=== PATIENT | female | born 1975 | race Caucasian/White ===

== ENCOUNTER 2023-07-28 18:19 | Observation (INO) ==
[2023-07-28 19:09] LABS: Influenza B virus by PCR Negative (Neg); RSV by PCR Negative (Neg); SARS CoV2 RNA(COVID-19) Ceph NEGATIVE (Negative)
[2023-07-28 19:34] LABS: Basophils # (auto) 0.02 K/uL (0.00-0.20); Basophils % (auto) 0.3 %; Eosinophils # (auto) 0.08 K/uL (0.00-0.50); Eosinophils % (auto) 1.2 %; Hematocrit (blood only) 39.8 % (37.0-47.0); Hemoglobin 13.9 g/dl (12.0-16.0); Immature Granulocytes # (auto) 0.03 K/uL (0.01-0.20); Immature Granulocytes % (auto) 0.5 %; Lymphocytes # (auto) 0.56 K/uL (1.20-3.40); Lymphocytes % (auto) 8.7 %; Mean Corpuscular Hgb Conc 34.9 g/dL (32.0-36.0); Mean Corpuscular Volume 88.6 fL (80.0-100.0); Mean Platelet Volume 10.4 fL (9.4-12.4); Monocytes # (auto) 0.66 K/uL (0.11-0.59); Monocytes % (auto) 10.3 %; Neutrophils # (auto) 5.07 K/uL (1.40-6.50); Platelet Count 263 K/uL (130-400); RDW Coefficient of Variation 12.8 % (11.5-14.5); RDW Standard Deviation 41.7 fL (36.4-46.3); Red Blood Count 4.49 M/uL (4.20-5.40); White Blood Count 6.42 K/ul (4.8-10.8)
[2023-07-28 19:39] LABS: Influenza A virus by PCR Positive (Neg)
[2023-07-28] MEDS ORDERED: OSELTAMIVIR PHOSPHATE 75 MG CAP PO STA (19:41)
[2023-07-28] MEDS ORDERED: SODIUM CHLORIDE 0.9% 1,000 ML IV ONE (19:41)
[2023-07-28] MEDS ORDERED: dexAMETHasone**PF** 10 MG/ML VIAL IV ONE (19:41)
[2023-07-28] MEDS ORDERED: ALBUT/IPRATROP 3MG/0.5MG NEB 3 ML VIAL NEB STA ×2 (19:41→21:31)
--- NOTE | 2023-07-28 19:47 | Emergency Department Note ---
Impression & Plan Acute asthma exacerbation, Influenza ED Provider Note NAME: LJ GASCA AGE: 48 SEX: F : 1975 ARRIVES VIA: Walk-In INFORMANT: Patient, ED PROVIDER(S): Dave Roberto DO CHIEF COMPLAINT: Difficulty breathing HPI: The patient is a 48-year-old female who presented to the emergency department for an evaluation of fever and difficulty breathing. The patient has a history of asthma. She states that she has been having problems ever since last evening. She has been using her inhaler as well as taking medication for fever. She denies having any vomiting or abdominal pain. She does note muscle aches as well as headaches. The patient states that she feels somewhat improved after her inhaler. She continues to have cough and wheezing. ROS: See above HPI for pertinent positives & negatives. A total of 10 systems reviewed and were otherwise negative. PAST MEDICAL HISTORY: See Below PAST SURGICAL HISTORY: See Below FAMILY HISTORY: See Below SOCIAL HISTORY: See Below HOME MEDICATIONS: See Below ALLERGIES: See Below VITALS: See Below PHYSICAL EXAMINATION: GENERAL: The patient is awake and alert. She does appear somewhat anxious. EYES: The conjunctivae are clear. The pupils are round and reactive. EARS, NOSE, MOUTH AND THROAT: The nose is without any evidence of any deformity. NECK: The neck is nontender and supple. RESPIRATORY: Diminished breath sounds are noted throughout. There is conversational dyspnea. CARDIOVASCULAR: Tachycardic and regular heart sounds were noted to auscultation. There is no definite murmur. GASTROINTESTINAL: The abdomen is soft. Abdomen is nontender. MUSCULOSKELETAL/EXTREMITIES: There is no evidence of gross deformity full range of motion is noted in the hips and shoulders. SKIN: There is no obvious evidence of any rash. There are no petechiae, pallor or cyanosis noted. NEUROLOGIC: Patient is awake alert and oriented x3 MEDICAL DECISION MAKING: The patient is a 48-year-old female who presented to the emergency department for an evaluation of cough and difficulty breathing. The patient has a history of asthma. She also had tachycardia and fever. I discussed the patient's laboratory and radiographic studies with her. She was found to have a positive influenza swab. Chest x-ray revealed no signs of pneumonia. She was treated with IV fluids IV steroids oral Tamiflu as well as bronchodilator therapy. She was reevaluated but continued to have significant shortness of breath especially with any exertion. Wheezing was significantly improved. Given her presentation I do feel the patient would be a better candidate for inpatient management. For this reason the [facility] hospitalist was notified. Triage Nursing notes reviewed. Prior medical records reviewed Vital Signs: reviewed and remarkable for tachycardia Differential diagnosis: Reactive airway disease, pneumonia, pneumothorax, COPD, CHF, infections, cardiac ischemia, pulmonary embolism, musculoskeletal, gastrointestinal, as well as other pathologies. ER treatment provided: See below Diagnostics interpreted by me: ECG: EKG was obtained in the emergency department. My interpretation is sinus tachycardia at 116 bpm. There is no ectopy. There is no acute ST segment abnormalities noted. This was compared to a tracing from May 05, 2006. There is an increase in rate otherwise no significant changes were noted. Cardiac Monitoring: An order was placed for continuous cardiac monitoring. The monitor shows a rate of 106 bpm with sinus tachycardia. Laboratory studies: As stated above and show below. Imaging studies: See below. Radiographic imaging was reviewed by myself Consultation(s): Dr. Tapia was notified about the patient. He will evaluate the patient in the emergency department. ED COURSE: Procedures: none Critical Care: I have personally spent greater than 45 minutes of critical care time in the direct management of this patient. This includes bedside care, interpretation of diagnostic studies, and testing, discussion with consultants, patient, and family members, and other required patient management activities. This 45 minutes is in excess of all separately billable procedures. Past Med/Surg History Surgical History H/O sinus surgery S/P breast lumpectomy Hx of cholecystectomy History of ankle surgery x3 Hx of tonsillectomy History of appendectomy Family History Grandmother (Maternal) Lung cancer Brain cancer Grandmother (Paternal) Ovarian cancer Grandfather (Paternal) Liver cancer Denies family history of Prostate cancer Myocardial infarction Breast cancer Colorectal cancer Stroke Social History Smoking Status: Unknown if ever smoked Do You Dip or Chew Tobacco: No; Hx Alcohol Use: Yes Alcohol type: wine Alcohol Intake Frequency: 2-3 x/Week Hx Substance Use: No Preferred Language: Polish Communication Ability: Effective Hearing Ability: Normal Yeast Pusher Required: No marital status: Single Current Living Situation: Alone 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 Feels Safe at Home: Yes Childhood Exposure to Second-Hand Smoke: No Diet: regular caffeine: Yes Dental Care, Regularly: No Physical Activity Frequency: Does not Exercise Seatbelt Use: always Sunscreen Use: No Allergies Allergies Allergy/AdvReac Type Severity Reaction Status Date / Time NSAIDS (Non-Steroidal Allergy Severe Verified 09/04/22 09:26 Anti-Inflamma poison giacomo extract Allergy Unknown Unverified 09/04/22 09:26 morphine AdvReac Unknown ITCHY Verified 09/04/22 09:26 ENVIRONMENTAL Allergy Mild Uncoded 07/24/22 10:09 Home Meds Previous Rx's Medication Instructions Recorded esomeprazole magnesium 20 mg 20 mg PO DAILY #90 caps 07/24/22 capsule,delayed release (Nexium) fexofenadine 180 mg tablet 180 mg PO BID #180 tabs 07/24/22 (Laurel Allergy) meclizine 25 mg tablet 25 mg PO DAILY PRN motion sickness 07/24/22 #90 tabs ondansetron 4 mg disintegrating 4 mg PO Q8H PRN nausea and 07/24/22 tablet vomiting #90 tabs buspirone 5 mg tablet 5 mg PO TID 30 days #90 tabs 09/04/22 escitalopram oxalate 20 mg tablet 20 mg PO DAILY #90 tabs 10/18/22 (Lexapro) hydroxyzine HCl 25 mg tablet 25 mg PO HS PRN sleep #90 tabs 10/18/22 Results & Data (ED) Vital Signs Vital Signs - 24 hr 07/28/23 18:20 07/28/23 19:00 07/28/23 19:25 Temperature 37.7 C H 37.7 C H Temperature Source Temporal Artery Scan Oral Pulse Rate 122 H Pulse Rate [Finger] 119 H 100 H Pulse Rhythm [Finger] Regular Respiratory Rate 22 20 18 Respiratory Effort / Characteristics Non-Labored Spontaneous Non-Labored Spontaneous Respiratory Depth Normal Normal Respiratory Pattern Regular Blood Pressure 147/83 H Blood Pressure [Right Arm] 129/26 L Blood Pressure Mean 104 Blood Pressure Mean [Right Arm] 60 Blood Pressure Position [Right Arm] Lying Pulse Oximetry 91 93 94 Oxygen Delivery Method Room Air Room Air Room Air Sepsis Recent Fever Within 48 Hours Yes Sepsis New/Unexplained Change in Mental Status N/A Sepsis Action Taken by Nursing No Action Required 07/28/23 20:08 07/28/23 21:03 07/28/23 21:38 Temperature 36.8 C Temperature Source Oral Pulse Rate 105 H Pulse Rate [Finger] 106 H Pulse Rhythm [Finger] Respiratory Rate 18 Respiratory Effort / Characteristics Non-Labored Spontaneous Respiratory Depth Normal Respiratory Pattern Regular Blood Pressure Blood Pressure [Right Arm] 146/93 H Blood Pressure Mean Blood Pressure Mean [Right Arm] 110 Blood Pressure Position [Right Arm] Lying Pulse Oximetry 92 Oxygen Delivery Method Room Air Sepsis Recent Fever Within 48 Hours Sepsis New/Unexplained Change in Mental Status Sepsis Action Taken by Senior Care Medications Current Medication List: was personally reviewed by me Laboratory Data Attestation: I reviewed the patient's lab results. 07/28/23 19:00 07/28/23 19:00 Lab Results 07/28/23 07/28/23 Range/Units 16:24 19:00 WBC 6.42 (4.8-10.8) K/ul RBC 4.49 (4.20-5.40) M/uL Hgb 13.9 (12.0-16.0) g/dl Hct 39.8 (37.0-47.0) % MCV 88.6 (80.0-100.0) fL MCH 31.0 (25.0-34.0) pg MCHC 34.9 (32.0-36.0) g/dL RDW Std Deviation 41.7 (36.4-46.3) fL RDW Coeff of Doreen 12.8 (11.5-14.5) % Plt Count 263 (130-400) K/uL MPV 10.4 (9.4-12.4) fL Immature Gran % (Auto) 0.5 % Neut % (Auto) 79.0 % Lymph % (Auto) 8.7 % [place] % (Auto) 10.3 % Eos % (Auto) 1.2 % Baso % (Auto) 0.3 % Neut # (Auto) 5.07 (1.40-6.50) K/uL Lymph # (Auto) 0.56 L (1.20-3.40) K/uL [place] # (Auto) 0.66 H (0.11-0.59) K/uL Eos # (Auto) 0.08 (0.00-0.50) K/uL Baso # (Auto) 0.02 (0.00-0.20) K/uL Immature Gran # (Auto) 0.03 (0.01-0.20) K/uL Sodium 136 (136-145) mmol/L Potassium 3.5 (3.5-5.1) mmol/L Chloride 103 (98-107) mmol/L Carbon Dioxide 23 (21-32) mmol/L Anion Gap 10 (3-11) BUN 13 (6-23) mg/dl Creatinine 0.78 (0.6-1.2) mg/dl Est Cr Clr Drug Dosing 114.5 ml/min Est GFR ( Amer) 104.2 ml/min Est GFR (Non-Af Amer) 89.9 ml/min BUN/Creatinine Ratio 16.7 (10-20) Glucose 144 H (70-99(Fasting)) mg/dl Calcium 9.2 (8.6-10.3) mg/dl Total Bilirubin 0.3 (0.2-1.0) mg/dl AST 22 (13-39) U/L ALT 27 (7-52) U/L Alkaline Phosphatase 63 (34-104) U/L Troponin I High Sens 2.7 (0-14) pg/ml Total Protein 6.9 (6.0-8.3) gm/dl Albumin 4.2 (3.4-5.0) gm/dl Globulin 2.7 (2.5-4.0) gm/dl Albumin/Globulin Ratio 1.6 (0.9-2) SARS-CoV-2 (PCR) NEGATIVE (Negative) Influenza Type A (PCR) Positive A* (Neg) Influenza Type B (PCR) Negative (Neg) RSV (RT-PCR) Negative (Neg) Administered Medications Discontinued Medications Acetaminophen (Acetaminophen 500 Mg Tab) 1,000 mg PO NOW STA Stop: 07/28/23 20:49 Last Admin: 07/28/23 21:01 Dose: 1,000 mg Documented By: BRYON Albuterol (Albut/Ipratrop 3mg/0.5mg Neb 3 Ml Vial) 3 ml NEB NOW STA; Protocol Stop: 07/28/23 19:42 Last Admin: 07/28/23 19:56 Dose: 3 ml Documented By: BRYON Albuterol (Albut/Ipratrop 3mg/0.5mg Neb 3 Ml Vial) 3 ml NEB NOW STA; Protocol Stop: 07/28/23 21:32 Last Admin: 07/28/23 21:36 Dose: 3 ml Documented By: BRYON Dexamethasone Sodium Phosphate (DexamethasonePf 10 Mg/Ml Vial) 10 mg IV NOW ONE Stop: 07/28/23 19:42 Last Admin: 07/28/23 19:56 Dose: 10 mg Documented By: BRYON Sodium Chloride (Nss) 1,000 mls @ 999 mls/hr IV .Q1H1M ONE Stop: 07/28/23 20:41 Last Admin: 07/28/23 19:57 Dose: 999 mls/hr Documented By: BRYON Oseltamivir Phosphate (Oseltamivir Phosphate 75 Mg Cap) 75 mg PO NOW STA; Protocol Stop: 07/28/23 19:42 Last Admin: 07/28/23 19:56 Dose: 75 mg Documented By: BRYON Imaging Data Attestation: I personally reviewed and interpreted this imaging study as follows: My Impression: 1 view chest x-ray was obtained in the emergency department. My interpretation is no free air or definite infiltrate, final report below. Radiologist's Impression: Chest X-Ray 07/28/23 18:24 XR chest 1V not portable HISTORY: 48 years-old Female Respiratory illness, no prior imaging COMPARISON: 05/05/2006 TECHNIQUE: AP view of the chest FINDINGS: Cardiomediastinal and hilar silhouettes are within normal limits. No pneumothorax, pleural effusion or airspace consolidation. Bones appear grossly intact. IMPRESSION: No acute process ACT 112: Negative or not required by law. The above report was generated using voice recognition software. It may contain grammatical, syntax or spelling errors. Electronically signed by: Gerald Perkins M.D. 07/28/2023 8:00 PM Discharge Plan Visit Data Chief Complaint: Asthma Stated Complaint: SOB, COUGH, ASTHMA ED Provider: Dave Roberto Discharge Problem: Acute asthma exacerbation, Influenza Patient Disposition: Being Evaluated by Hospitalist Forms Stand Alone Forms: My [facility] Prescriptions Prescriptions: No Action hydroxyzine HCl 25 mg tablet 25 mg PO HS PRN (Reason: sleep) Qty: 90 3RF escitalopram oxalate [Lexapro] 20 mg tablet 20 mg PO DAILY Qty: 90 3RF buspirone 5 mg tablet 5 mg PO TID 30 Days Qty: 90 2RF fexofenadine [Laurel Allergy] 180 mg tablet 180 mg PO BID Qty: 180 3RF meclizine 25 mg tablet 25 mg PO DAILY PRN (Reason: motion sickness) Qty: 90 3RF ondansetron 4 mg tablet,disintegrating 4 mg PO Q8H PRN (Reason: nausea and vomiting) Qty: 90 3RF esomeprazole magnesium [Nexium] 20 mg capsule,delayed release(DR/EC) 20 mg PO DAILY Qty: 90 3RF Referrals Referrals: Ysabel Meyers MD [Primary Care Provider] - Discharge Problem: Acute asthma exacerbation Qualifiers: Asthma severity: moderate Asthma persistence: persistent Qualified Code(s): J 45.41 - Moderate persistent asthma with (acute) exacerbation
[2023-07-28 19:50] LABS: Albumin Globulin Ratio 1.6 (0.9-2); Albumin Level 4.2 gm/dl (3.4-5.0); BUN Creatinine Ratio 16.7 (10-20); Bilirubin,Total 0.3 mg/dl (0.2-1.0); Calcium 9.2 mg/dl (8.6-10.3); Creatinine Clr Calc Pharmacy 114.5 ml/min; Est GFR (African American) 104.2 ml/min; Est GFR (Non-African American) 89.9 ml/min; Globulin 2.7 gm/dl (2.5-4.0); Potassium 3.5 mmol/L (3.5-5.1); Total Protein 6.9 gm/dl (6.0-8.3)
[2023-07-28 19:57] LABS: Troponin I High Sensitivity 2.7 pg/ml (0-14)
--- NOTE | 2023-07-28 20:01 | XRay Report ---
XR chest 1V not portable HISTORY: 48 years-old Female Respiratory illness, no prior imaging COMPARISON: 05/05/2006 TECHNIQUE: AP view of the chest FINDINGS: Cardiomediastinal and hilar silhouettes are within normal limits. No pneumothorax, pleural effusion o r airspace consolidation. Bones appear grossly intact. IMPRESSION: No acute process ACT 112: Negative or not required by law. The above report was generated using voice recognition software. It may contain grammatical, syntax o r spelling errors. Electronically signed by: Gerald Perkins M.D. 07/28/2023 8:00 PM
[2023-07-28] MEDS ORDERED: ACETAMINOPHEN 500 MG TAB PO STA (20:48)
--- NOTE | 2023-07-28 22:33 | History & Physical Report ---
Date of Service July 28, 2023 Assessment & Plan (1) Acute asthma exacerbation: Plan: -Pt currently with acute on chronic asthma exacerbation secondary to influenza infection -CXR does not suggest any acute processes including pneumonia -Currently hemodynamically stable, afebrile and stable respiratory status on RA -Continue home fexofenadine -Continue supportive care measures -Duoneb q4h -Tamiflu 75 mg BID -Solumedrol 40 mg IV BID with low threshold to transition to prednisone if improving -Tylenol 1000 mg q8h scheduled for myalgias -Incentive spirometry -Supplemental O2 as needed (2) Influenzal acute upper respiratory infection: Plan: -Influenza A positive, see above -Would advise pt to receive flu vaccine this year after resolution of acute illness (3) Tachycardia: Plan: -Mild physiologic sinus tachycardia noted in ER, secondary to infection -Admission EKG w/o abnormality -Will not monitor on telemetry for now (4) Acid reflux: Plan: -Continue home esomeprazole -Will cover ulcer prophylaxis whie pt is on steroids (5) Depression: Plan: -Continue Lexapro (6) Anxiety: Plan: -Continue buspirone -Continue hydroxyzine PRN Plan FENGI: Regular Code status: Full DVT prophylaxis: Lovenox BID Isolation: Droplet Unit: Medical/surgical Disposition planning: Likely home History of Present Illness Chief Complaint: Dyspnea Primary Care Provider: Ysabel Meyers MD Pt is 48 yo F with PMH asthma, anxiety, depression, GERD presenting with dyspnea. Pt reports onset of dyspnea and non-productive cough 1.5 days prior, associated with subjective fever, chills, headaches and myalgias. Symptoms acutely worsened evening prior which prompted her to use home albuterol inhaler more frequently along with Tylenol for fever at home. No recent travel or sick contacts though she did not get flu shot this year despite normally doing so because her workplace did not require it this year. Pt arrived to ER hemodynamically stable, HR 100s. Initial evaluation unremarkable including CBC, CMP, troponin, CXR. Flu A positive. ER interventions include albuterol nebulizer x2, Dexamethasone 10 mg, Tamiflu 75 mg, Tylenol 1000 mg IV, NSS 1L bolus. At present, pt reports feeling much better after albuterol treatment but still having some dyspnea. Allergies Allergy/AdvReac Type Severity Reaction Status Date / Time NSAIDS (Non-Steroidal Allergy Severe Anaphylaxis Verified 07/28/23 23:19 Anti-Inflamma poison giacomo extract Allergy Unknown Rash Unverified 07/28/23 23:19 morphine AdvReac Unknown ITCHY Verified 07/28/23 23:19 ENVIRONMENTAL Allergy Mild Unknown Uncoded 07/28/23 23:19 Home Medications Medication Instructions Recorded Confirmed Type ondansetron 4 mg disintegrating 4 mg PO Q8H PRN nausea and 07/24/22 07/28/23 Rx tablet vomiting #90 tabs hydroxyzine HCl 25 mg tablet 25 mg PO HS PRN sleep #90 tabs 10/18/22 07/28/23 Rx escitalopram oxalate 20 mg tablet 20 mg PO QPM 07/28/23 07/28/23 History (Lexapro) esomeprazole magnesium 20 mg 20 mg PO QAM 07/28/23 07/28/23 History tablet,delayed release fexofenadine 180 mg tablet 180 mg PO BID 07/28/23 07/28/23 History iron,carbonyl 65 mg-vitamin C 125 1 tab PO DAILY 07/28/23 07/28/23 History mg tablet,delayed release (Vitron-C) phenazopyridine 95 mg tablet 95 mg PO QAM 07/28/23 07/28/23 History Past Med/Surg History Surgical History H/O sinus surgery S/P breast lumpectomy Hx of cholecystectomy History of ankle surgery x3 Hx of tonsillectomy History of appendectomy Family History Grandmother (Maternal) Lung cancer Brain cancer Grandmother (Paternal) Ovarian cancer Grandfather (Paternal) Liver cancer Denies family history of Prostate cancer Myocardial infarction Breast cancer Colorectal cancer Stroke Social History Smoking Status: Never smoker Do You Dip or Chew Tobacco: No; Hx Alcohol Use: Yes Alcohol type: wine Alcohol Intake Frequency: 2-3 x/Week Hx Substance Use: No Preferred Language: Paraguayan Communication Ability: Effective Hearing Ability: Normal Partition Notcher Required: No Beliefs That Will Affect Care: None marital status: Single Current Living Situation: Alone 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 Other Information That Helps Us Care for You: No Feels Safe at Home: Yes Childhood Exposure to Second-Hand Smoke: No Diet: regular caffeine: Yes Dental Care, Regularly: No Physical Activity Frequency: Does not Exercise Seatbelt Use: always Sunscreen Use: No Assistive Devices: Glasses Review of Systems Review of Systems: Per HPI/Subjective Physical Exam Physical Exam: General: tired-appearing, no acute distress HEENT: PERRL, EOMI, conjunctivae clear without injection, anicteric sclerae, moist mucous membranes, clear oropharynx without exudate or erythema Neck: supple, trachea midline, no thyromegaly, no JVD, no cervical lymphadenopathy CV: RRR, normal S1 and S2, no murmurs Resp: Diminished breath sounds diffusely, no increased work of breathing, no crackles or wheezes. Conversational dyspnea noted. Abd: Soft, nontender, nondistended, no guarding or rebound, no hepatosplenomegaly MSK: Normal bulk of all four extremities Neuro: AOx3, no focal motor or sensory deficits Skin: no rashes or lesions, warm and dry Ext: no LE peripheral edema or erythema, capillary refill <2s in all four extremities, 2+ LE peripheral pulses b/l Results & Data Results & Data Vital Signs (Past 12 Hours) Vital Signs Temp Pulse Pulse Resp BP BP Pulse Ox 07/28/23 21:38 36.8 C 07/28/23 21:03 106 H 18 146/93 H 92 07/28/23 20:08 105 H 07/28/23 19:25 37.7 C H 100 H 18 129/26 L 94 07/28/23 19:00 119 H 20 93 07/28/23 18:20 37.7 C H 122 H 22 147/83 H 91 O2 Del Method 07/28/23 21:38 07/28/23 21:03 Room Air 07/28/23 20:08 07/28/23 19:25 Room Air 07/28/23 19:00 Room Air 07/28/23 18:20 Room Air Code Status & VTE Plan VTE Prophylaxis Plan VTE Prophylaxis will be ordered: Yes Supervising Physician Co-Signing Physician Notes Attending addendum: I have physically seen this patient, have supervised the medical residents activities, and agree with the H&P unless as otherwise noted. Assessment and Plan: Asthma exacerbation/influenza A URI- Duonebs every 4 hours while awake and every 2 hours when necessary. Tamiflu 75 mg p.o. twice daily Received dexamethasone 10 mg IV from the ED Methylprednisolone 40 mg IV every 8 hours Tylenol 1 g p.o. every 8 hours as needed Incentive spirometry Nasal cannula oxygen, titrate to keep pulse ox around 95% GERD- Change Nexium to pantoprazole per formulary interchange Anxiety with depression- Continue Lexapro, buspirone and hydroxyzine as needed Resident Activity Tracking Resident Involvement: Resident Care Provided Care Provided: Adult Hospital Medicine (1) Acute asthma exacerbation Asthma persistence: persistent Asthma severity: moderate Qualified Code(s): J45.41 - Moderate persistent asthma with (acute) exacerbation
[2023-07-29] MEDS ORDERED: hydrOXYzine HCl 25 MG TAB PO PRN (01:17)
[2023-07-29] MEDS ORDERED: ONDANSETRON 4 MG OD TAB PO PRN (01:17)
[2023-07-29] MEDS ORDERED: oxyCODONE HCL IR 5 MG TAB (IMMEDIATE RELEASE) PO STA (01:41)
[2023-07-29] MEDS: ALBUT/IPRATROP 3MG/0.5MG NEB 3 ML VIAL NEB SCH ×4 (02:14→11:45)
[2023-07-29] MEDS ORDERED: Nursing to Pharmacy Communication SCH (03:00)
--- NOTE | 2023-07-29 05:15 | Billing Data ---
Date of Service July 29, 2023 Coding Level of Care Code 57324 INT INP/OBS CARE
[2023-07-29] MEDS ORDERED: ENOXAPARIN INJ 40 MG/0.4 ML SYR SQ SCH (06:00)
[2023-07-29] MEDS ORDERED: ACETAMINOPHEN 500 MG TAB PO SCH (06:00)
[2023-07-29 07:55] LABS: Hematocrit (blood only) 37.7 % (37.0-47.0); Hemoglobin 12.7 g/dl (12.0-16.0); Mean Corpuscular Hemoglobin 30.5 pg (25.0-34.0); Mean Corpuscular Hgb Conc 33.7 g/dL (32.0-36.0); Mean Corpuscular Volume 90.6 fL (80.0-100.0); Mean Platelet Volume 10.4 fL (9.4-12.4); Platelet Count 262 K/uL (130-400); RDW Coefficient of Variation 12.7 % (11.5-14.5); RDW Standard Deviation 41.7 fL (36.4-46.3); Red Blood Count 4.16 M/uL (4.20-5.40)
[2023-07-29] MEDS: busPIRone 5 MG TAB PO SCH ×2 (08:04→08:05)
[2023-07-29 08:10] LABS: BUN Creatinine Ratio 15.9 (10-20); Calcium 8.6 mg/dl (8.6-10.3); Creatinine Clr Calc Pharmacy 128.6 ml/min; Est GFR (African American) 119.3 ml/min; Est GFR (Non-African American) 102.9 ml/min; Potassium 3.8 mmol/L (3.5-5.1)
[2023-07-29] MEDS ORDERED: OSELTAMIVIR PHOSPHATE 75 MG CAP PO SCH (09:00)
[2023-07-29] MEDS ORDERED: methylPREDNISolone 40 MG in SYRINGE 0 ML IV SCH (09:00)
[2023-07-29] MEDS ORDERED: FEXOFENADINE HCL 180 MG TAB PO SCH (09:00)
[2023-07-29] MEDS ORDERED: PANTOprazole 40 MG TAB PO SCH ×2 (09:00→21:00)
[2023-07-29] MEDS ORDERED: ESCITALOPRAM OXALATE 20 MG TAB PO SCH ×2 (09:00→21:00)
--- NOTE | 2023-07-29 11:56 | Discharge Summary ---
Date of Service July 29, 2023 Admission HPI Per Admitting Provider Pt is 48 yo F with PMH asthma, anxiety, depression, GERD presenting with dyspnea. Pt reports onset of dyspnea and non-productive cough 1.5 days prior, associated with subjective fever, chills, headaches and myalgias. Symptoms acutely worsened evening prior which prompted her to use home albuterol inhaler more frequently along with Tylenol for fever at home. No recent travel or sick contacts though she did not get flu shot this year despite normally doing so because her workplace did not require it this year. Pt arrived to ER hemodynamically stable, HR 100s. Initial evaluation unremarkable including CBC, CMP, troponin, CXR. Flu A positive. ER interventions include albuterol nebulizer x2, Dexamethasone 10 mg, Tamiflu 75 mg, Tylenol 1000 mg IV, NSS 1L bolus. At present, pt reports feeling much better after albuterol treatment but still having some dyspnea. Principal Diagnosis Acute exacerbation intrinsic asthma, influenza A Discharge Exam General-alert and oriented x3, no fevers, no chills HEENT-head atraumatic and normocephalic, pupils equal and reactive to light, extraocular muscles intact Neck-no lymphadenopathy or thyromegaly, trachea midline Chest-clear to auscultation percussion. No rales wheezing or rhonchi Cardiac-regular rate and rhythm, normal S1 and S2 Abdomen-normal bowel sounds, nontender, no hepatosplenomegaly Extremities-no cyanosis, clubbing, or edema Neuro-cranial nerves II through XII intact, motor and sensory function within normal limits, strength symmetrical, no focal deficits Psych-normal affect, normal mood Discharge Data Allergies Allergy/AdvReac Type Severity Reaction Status Date / Time NSAIDS (Non-Steroidal Allergy Severe Anaphylaxis Verified 07/28/23 23:19 Anti-Inflamma poison giacomo extract Allergy Unknown Rash Unverified 07/28/23 23:19 morphine AdvReac Unknown ITCHY Verified 07/28/23 23:19 ENVIRONMENTAL Allergy Mild Unknown Uncoded 07/28/23 23:19 Consultations 07/28/23 21:59 ED Decision to Admit Stat Hospital Course (1) Acute asthma exacerbation: Resolved. No wheezing at this time. She will be discharged on a prednisone tapering dose and use her albuterol inhaler as she did before (2) Influenzal acute upper respiratory infection: Influenza A positive. Will continue Tamiflu for 5 days total (3) Tachycardia: Sinus tachycardia present on admission. Now resolved (4) Acid reflux: Stable. Continue PPI therapy Plan Home today, July 29, on a prednisone tapering dose and continue Tamiflu for 5 full days. Total Time Total Time Spent Total Time Spent (In Minutes): 45 minutes Discharge Plan Discharge Items Patient Disposition: Home - Self-Care Reason For Visit: FLU, ASTHMA EXACERBATION Discharge Diagnosis: Influenza A, acute exacerbation intrinsic asthma Activity: Resume your previous activity Non-emergency contact: Primary Care Provider Call non-emergency contact if: your symptoms worsen Follow-up/Referrals: Ysabel Meyers MD [Primary Care Provider] - Diet: Regular Addtl Attending Provider Instructions: Continue Tamiflu for 4 more days. Take prednisone in a tapering dose fashion until gone as directed. Pending Studies at Discharge: No Stand-Alone Forms: My [facility] [employer], Smoking Cessation Medications and DC Order Prescriptions: New oseltamivir [Tamiflu] 75 mg Capsule 75 mg PO BID Qty: 8 0RF albuterol sulfate 90 mcg/actuation HFA aerosol inhaler 2 inh inhalation TID PRN (Reason: shortness of breath or wheezing) Qty: 6.7 0RF prednisone 10 mg tablet See Rx Instructions .ROUTE .COMPLEX Qty: 12 0RF Rx Instructions: 10 mg orally 3 times a day for 2 days, then 10 mg twice a day for 2 days, then 10 mg once a day for 2 days, then stop Continued hydroxyzine HCl 25 mg tablet 25 mg PO HS PRN (Reason: sleep) Qty: 90 3RF ondansetron 4 mg tablet,disintegrating 4 mg PO Q8H PRN (Reason: nausea and vomiting) Qty: 90 3RF phenazopyridine [Azo] 95 mg Tablet 95 mg PO QAM Vitron-C 65 mg iron- 125 mg Tablet,Delayed Release (Dr/Ec) 1 tab PO DAILY escitalopram oxalate [Lexapro] 20 mg tablet 20 mg PO QPM fexofenadine 180 mg Tablet 180 mg PO BID esomeprazole magnesium 20 mg Tablet,Delayed Release (Dr/Ec) 20 mg PO QAM Discharge Orders: Discharge Order (Routine); Ordered 07/29/23 Ordered By: Ayo Munroe Admission Data Admit Date/Time: 07/28/23 22:33 Attending Provider: Ludwig,Ayo R. Admit Provider: Amanda Durbin Primary Care Provider: Ysabel Meyers Other Providers: Rene Tapia Coding Level of Care Code 32396 INP/OBS DISCH >30 MIN Diagnoses Acute asthma exacerbation J45.41 Asthma persistence: persistent Asthma severity: moderate Influenzal acute upper respiratory infection J11.1 Tachycardia R00.0 Acid reflux K21.9
--- NOTE | 2023-07-29 18:02 | Electrocardiogram Report ---
Test Reason : Blood Pressure : / mmHG Vent. Rate : 116 BPM Atrial Rate : 116 BPM P-R Int : 122 ms QRS Dur : 082 ms QT Int : 306 ms P-R-T Axes : 000 028 067 degrees QTc Int : 425 ms Sinus tachycardia Otherwise normal ECG When compared with ECG of 05-MAY-2006 13:44, Vent. rate has increased BY 41 BPM Confirmed by Puma Mejía ([id number]) on 07/29/2023 6:01:44 PM Referred By: REFERRED SELF Confirmed By:Puma Mejía
== END 2023-07-29 13:05 | disposition home or self-care (01) ==
LOC: ED 18:19 → 3E 18:19 → SUATTDRO 22:33 → 3E 07-29 00:58

== ENCOUNTER 2025-06-02 09:17 | Observation (INO) ==
--- NOTE | 2025-05-19 09:40 | PAT Medication Instructions ---
Medication Instructions Date of Service May 19, 2025 Home Medications Medication Instructions Recorded CPAP Machine #1 ea 06/23/24 escitalopram oxalate 20 mg tablet 20 mg PO QPM #90 tabs 10/06/24 (Lexapro) hydroxyzine HCl 25 mg tablet 25 mg PO HS sleep #90 tabs 10/06/24 omalizumab 300 mg/2 mL 300 mg (2 mL) subcut .COMPLEX #2 mL 02/12/25 subcutaneous syringe (Xolair) albuterol sulfate 90 mcg/actuation 2 inh inhalation TID PRN shortness 03/29/25 aerosol inhaler of breath or wheezing #8.5 grams fexofenadine 180 mg tablet 180 mg PO BID escitalopram oxalate 20 mg tablet (Lexapro) 20 mg PO QPM hydroxyzine HCl 25 mg tablet 25 mg PO HS sleep acetaminophen 325 mg tablet (Tylenol) 650 mg PO HS PRN Pain olmesartan 20 mg tablet 20 mg PO HS omalizumab 300 mg/2 mL subcutaneous syringe (Xolair) 300 mg (2 mL) subcut .COMPLEX albuterol sulfate 90 mcg/actuation aerosol inhaler 2 inh inhalation TID PRN shortness of breath or wheezing dicyclomine 10 mg capsule 10 mg PO TID PRN Abdominal Pain esomeprazole magnesium 40 mg capsule,delayed release (Nexium) 40 mg PO QPM fluticasone propionate 230 mcg-salmeterol 21 mcg/actuation HFA inhaler (Advair HFA) 2 puff inhalation BID PRN Shortness Of Breath iron,carbonyl 65 mg-vitamin C 125 mg tablet,delayed release (Vitron-C) 1 tab PO DAILY prednisone 20 mg tablet 40 mg PO UD PRN swelling ASK your prescriber and surgeon omalizumab 300 mg/2 mL subcutaneous syringe (Xolair) 300 mg (2 mL) subcut .COMPLEX DO NOT take the morning of surgery fexofenadine 180 mg tablet 180 mg PO BID dicyclomine 10 mg capsule 10 mg PO TID PRN Abdominal Pain iron,carbonyl 65 mg-vitamin C 125 mg tablet,delayed release (Vitron-C) 1 tab PO DAILY Take morning of surgery With a small sip of water, OTHERWISE NOTHING TO EAT OR DRINK AFTER MIDNIGHT: albuterol sulfate 90 mcg/actuation aerosol inhaler 2 inh inhalation TID PRN shortness of breath or wheezing (use if needed; please bring rescue inhaler with you to hospital day of surgery if possible) fluticasone propionate 230 mcg-salmeterol 21 mcg/actuation HFA inhaler (Advair HFA) 2 puff inhalation BID PRN Shortness Of Breath (use if needed; please bring rescue inhaler with you to hospital day of surgery if possible) prednisone 20 mg tablet 40 mg PO UD PRN swelling (if needed) Take evening before surgery fexofenadine 180 mg tablet 180 mg PO BID escitalopram oxalate 20 mg tablet (Lexapro) 20 mg PO QPM hydroxyzine HCl 25 mg tablet 25 mg PO HS sleep acetaminophen 325 mg tablet (Tylenol) 650 mg PO HS PRN Pain (if needed) olmesartan 20 mg tablet 20 mg PO HS albuterol sulfate 90 mcg/actuation aerosol inhaler 2 inh inhalation TID PRN shortness of breath or wheezing (if needed) dicyclomine 10 mg capsule 10 mg PO TID PRN Abdominal Pain (if needed) esomeprazole magnesium 40 mg capsule,delayed release (Nexium) 40 mg PO QPM fluticasone propionate 230 mcg-salmeterol 21 mcg/actuation HFA inhaler (Advair HFA) 2 puff inhalation BID PRN Shortness Of Breath (if needed) prednisone 20 mg tablet 40 mg PO UD PRN swelling (if needed) Other Notes If you have any questions please call us at [phone] or [phone] or [phone] or [phone]
--- NOTE | 2025-05-21 13:06 | Anesthesiology Consultation ---
Date of Service May 21, 2025 Assessment & Plan (1) Encounter for pre-operative examination: - Ultimate discussion will be to assigned anesthesiologist with patient DOS. - Jania Contreras [facility] 2018 anesthesia record: "...general endotracheal...BP 154/87. Pulse 106. Resp 16. Temp 98.2 F. SpO2 94%...awake...airway patent: patent. No anesthetic complications. Cardiovascular status: acceptable. Respiratory status: acceptable...did patient require reintubation in the PACU: no...was the patient transferred to the ICU at the conclusion of surgery-no...discharge instruction reviewed with pt. Understanding verbalized. Pt denies pain, VSS. All belongings sent home with pt..." - mast cell activation syndrome (episodes consisting of dizziness/lightheadedness/near syncope, muscle weakness legs and arms, flushing, tachycardia, rash, itching, chest tightness): patient expresses concerns over a potential flare with upcoming surgery. [place] allergy response 05/21/25: "...She is already on Laurel twice daily with hydroxyzine at night and she also gets Xolair in our office so this should cover her. I would say if she develops symptoms she should increase her Laurel to 2 tablets twice daily. I also reviewed this with Dr. Atkinson and he agreed..." - check urine test STAT am DOS. Chart Review Chart Review: Acceptable Risk for Surgery and Patient seen in Pre Admission Testing Teaching & Discussion Pre-Anesthesia Teaching/Discussion Notes: Instructed NPO after midnight before surgery, except medications with 15 cc of water. Medication instructions provided according to the PAT guidelines. History Surgery Operation Date: 06/02/25 12:40 Proposed Procedures p Image Guided Bilateral Endoscopic Sinsus Surgery with Bilateral Maxillary Total Ethmoidectomies, Left Frontal Sinusotomies, Possible Septoplasty, Bilateral Inferior Turbinate Reduction - Carlos Soriano MD Height/Weight Height: 5 ft 6 in Weight: 118.1 kg Allergies Allergy/AdvReac Type Severity Reaction Status Date / Time NSAIDS (Non-Steroidal Allergy Severe Anaphylaxis Verified 05/19/25 07:35 Anti-Inflamma poison giacomo extract Allergy Unknown Rash Verified 05/19/25 07:35 morphine AdvReac Mild ITCHY Verified 05/19/25 07:35 ENVIRONMENTAL Allergy Mild Unknown Uncoded 05/19/25 07:35 metal AdvReac "swelling Uncoded 05/19/25 08:01 and pain" Medications Home Medications Medication Instructions Recorded Confirmed Last Taken fexofenadine 180 mg tablet 180 mg PO BID 07/28/23 05/19/25 02/04/25 20:00 CPAP Machine #1 ea 06/23/24 05/06/25 Unknown escitalopram oxalate 20 mg tablet 20 mg PO QPM #90 tabs 10/06/24 05/19/25 02/04/25 20:00 (Lexapro) hydroxyzine HCl 25 mg tablet 25 mg PO HS sleep #90 tabs 10/06/24 05/19/25 02/04/25 20:00 acetaminophen 325 mg tablet 650 mg PO HS PRN Pain 01/27/25 05/19/25 02/03/25 20:00 (Tylenol) olmesartan 20 mg tablet 20 mg PO HS 01/27/25 05/19/25 02/04/25 20:00 omalizumab 300 mg/2 mL 300 mg (2 mL) subcut .COMPLEX #2 mL 02/12/25 05/19/25 Unknown subcutaneous syringe (Xolair) albuterol sulfate 90 mcg/actuation 2 inh inhalation TID PRN shortness 03/29/25 05/19/25 Unknown aerosol inhaler of breath or wheezing #8.5 grams dicyclomine 10 mg capsule 10 mg PO TID PRN Abdominal Pain 05/19/25 05/19/25 Unknown esomeprazole magnesium 40 mg 40 mg PO QPM 05/19/25 05/19/25 Unknown capsule,delayed release (Nexium) fluticasone propionate 230 2 puff inhalation BID PRN 05/19/25 05/19/25 Unknown mcg-salmeterol 21 mcg/actuation Shortness Of Breath HFA inhaler (Advair HFA) iron,carbonyl 65 mg-vitamin C 125 1 tab PO DAILY 05/19/25 05/19/25 Unknown mg tablet,delayed release (Vitron-C) prednisone 20 mg tablet 40 mg PO UD PRN swelling 05/19/25 05/19/25 Unknown epinephrine 0.3 mg/0.3 mL 0.3 mg (0.3 mL) IM Q10M PRN 05/21/25 05/21/25 Unknown injection, auto-injector anaphylaxis #2 ea Past Medical History Medical History (Updated 05/21/25 @ 13:39 by Karla Foote PA-C) Acid reflux controlled, stable per pt Allergic rhinitis currently seeing [place] Anemia Anxiety Asthma daily inhaler and prn albuterol- using frequently in spring due to allergies- last albuterol inhaler several weeks ago Depression Dysphagia improving since start Xolair, scheduled to see gastro/ent after colonsocopy History of postoperative nausea and vomiting History of tachycardia "gets all the time," cardiac work up normal Hx of chest pain chronic, intermittent x 25 years ago-gradually improving-cardiac work-up (stress test 10 yrs ago was normal per patient)-states has had multiple ER/cardiology evaluations and EKGs/troponins were always normal Hypertension controlled, stable per pt Hypothyroidism monitored, no meds Mast cell disorder potential diagnosis - currently being worked up- had lab work ordered by Ivy Madrigal, [place] Panic disorder Restless leg Sleep apnea severe-unable to get cpap to work, has not yet worn Slow to wake up after anesthesia after sinus sx, 2018 [facility], "had to be admitted overnight until they could get her vitals stabilized" Thyroid nodule biopsied a few weeks ago at [facility] and benign Patient denies h/o stroke, seizures, heart attack, heart failure, DM, blood clots/DVTs or blood transfusions. Exercise / Class Metabolic Activity II 4-5 Yardwork/Stairs/Walk up hill (denies chest discomfort or shortness of breath with one flight of stairs) Past Family History Family History Grandmother (Maternal) Lung cancer Brain cancer Grandmother (Paternal) Ovarian cancer Grandfather (Paternal) Liver cancer Denies family history of Prostate cancer Myocardial infarction Breast cancer Colorectal cancer Stroke Past Surgical History Surgical History H/O sinus surgery (2018) History of ankle surgery x3- left- trimalleolar fracture History of appendectomy History of esophagogastroduodenoscopy (EGD) (2024) Hx of biopsy (12/2024) thyroid- benign Hx of cholecystectomy Hx of colonoscopy (2024) Hx of tonsillectomy (1984) S/P breast lumpectomy benign Past Anesthesia History No Family Hx of Anesthesia Complications and Other (slow to wake-admission due to "abnormal vitals" with 2019 sinus surgery; mother with PONV) History of PONV History of PONV and Hx of Motion Sickness Social History Smoking Status: Never smoker Do You Dip or Chew Tobacco: No Hx Alcohol Use: Yes Alcohol type: wine alcohol intake frequency: holidays/special occasions only Hx Substance Use: No substance use type: does not use Review of Systems Patient denies chest pain, shortness of breath, dyspnea on exertion, fever, chills, cough, wheezing, or palpitations. Physical Exam Vital Signs Vitals BP 111/77 P 91 TEMP SP02 96% on RA RESP 17 Physical Patient resting comfortably in chair in no acute distress, alert and oriented, responding appropriately throughout visit Full cervical extension range of motion without pain TMD 3 finger breadths Mallampati Score 3 Dentition: chipped left upper tooth and implant left lower side, denies loose teeth, caps/crowns or bridges Lungs: normal respiratory effort. Good air movement, clear throughout to auscultation, no adventitious breath sounds Cardiac: regular rate and rhythm, no murmurs noted Carotid arteries: negative bruit bilat Lab Results Anesthesia Preop Results Results Anesthesia Widget: WBC 8.28 K/ul (4.8-10.8) 05/21/25 Hgb 12.3 g/dl (12.0-16.0) 05/21/25 Hct 39.1 % (37.0-47.0) 05/21/25 Plt 295 K/uL (130-400) 05/21/25 Na 139 mmol/L (136-145) 05/21/25 K 3.7 mmol/L (3.5-5.1) 05/21/25 Cl 105 mmol/L (98-107) 05/21/25 CO2 31 mmol/L (21-32) 05/21/25 BUN 10 mg/dl (6-23) 05/21/25 Creat 0.75 mg/dl (0.6-1.2) 05/21/25 Glucose Level 108 mg/dl (70-99(Fasting)) H 05/21/25 Testing Electrocardiogram Date: 05/21/25 NSR, rate 83 bpm Chest X-Ray Date: 05/21/25 Unremarkable study Other Testing Thyroid US 11/11/24 1. The ultrasound from the prior FNA has a few images of FNA of a lower pole right thyroid lobe nodule which likely correlates with the 1.5 cm mixed cystic and solid nodule. 2. The 2.8 cm right thyroid lobe nodule is not seen on the prior exam. It is a TI-RADS 4 nodule for which ultrasound-guided FNA is recommended over 1.5 cm. Swallow study 11/11/24 Oral and pharyngeal stages of the swallow are wnl. There was no aspiration of pharyngeal retention after the swallow...does have s/s of esophageal dysfunction
[2025-06-02] MEDS ORDERED: DEXAMETHASONE SOD INJ 4 MG/ML VIAL ONE (10:03)
[2025-06-02] MEDS ORDERED: ONDANSETRON INJ 2 MG/ML 2 ML VIAL ONE (10:03)
[2025-06-02] MEDS ORDERED: MIDAZOLAM HCL 1 MG/ML 2ML VIAL ONE (10:03)
[2025-06-02] MEDS ORDERED: ROCURONIUM BROMIDE 10 MG/ML 5 ML VIAL IV ONE (10:03)
[2025-06-02] MEDS ORDERED: LIDOCAINE 2% 2 ML VIAL/AMP(20MG/ML) INFIL ONE (10:03)
[2025-06-02] MEDS ORDERED: PROPOFOL IV EMULSION 10 MG/ML 20 ML VIAL IV ONE (10:03)
[2025-06-02] MEDS: LACTATED RINGER'S 1,000 ML IV SCH (10:17)
--- NOTE | 2025-06-02 10:24 | History & Physical Report ---
Date of Service June 02, 2025 Assessment & Plan (1) Antrochoanal polyp: (2) Chronic sinusitis, unspecified: Plan 50yF presenting for image guided bilateral endoscopic sinus with bilateral maxillary antrostomies, total ethmoidectomies, left frontal sinusotomy, possible septoplasty, bilateral inferior turbinate reduction. No changes. Proceed as planned History of Present Illness Primary Care Provider: ANTONIO Nelson 50yF presenting for image guided bilateral endoscopic sinus with bilateral maxillary antrostomies, total ethmoidectomies, left frontal sinusotomy, possible septoplasty, bilateral inferior turbinate reduction. No changes Allergies Allergy/AdvReac Type Severity Reaction Status Date / Time NSAIDS (Non-Steroidal Allergy Severe Anaphylaxis Verified 05/24/25 16:33 Anti-Inflamma poison giacomo extract Allergy Severe Rash Verified 06/02/25 09:45 morphine AdvReac Intermediate ITCHY Verified 06/02/25 09:45 ENVIRONMENTAL Allergy Mild from [facility] Uncoded 06/02/25 09:45 possibly per pt metal AdvReac Intermediate "swelling Uncoded 06/02/25 09:45 and pain" Home Medications Medication Instructions Recorded Confirmed Type fexofenadine 180 mg tablet 180 mg PO BID 07/28/23 06/02/25 History (Laurel Allergy) CPAP Machine #1 ea 06/23/24 05/24/25 Rx acetaminophen 325 mg tablet 650 mg PO HS PRN Pain 01/27/25 06/02/25 History (Tylenol) omalizumab 300 mg/2 mL 300 mg (2 mL) subcut .COMPLEX #2 mL 02/12/25 06/02/25 Rx subcutaneous syringe (Xolair) albuterol sulfate 90 mcg/actuation 2 inh inhalation TID PRN shortness 03/29/25 06/02/25 Rx aerosol inhaler of breath or wheezing #8.5 grams dicyclomine 10 mg capsule 10 mg PO TID PRN Abdominal Pain 05/19/25 06/02/25 History esomeprazole magnesium 40 mg 40 mg PO QPM 05/19/25 06/02/25 History capsule,delayed release (Nexium) fluticasone propionate 230 2 puff inhalation BID PRN 05/19/25 06/02/25 History mcg-salmeterol 21 mcg/actuation Shortness Of Breath HFA inhaler (Advair HFA) iron,carbonyl 65 mg-vitamin C 125 1 tab PO DAILY 05/19/25 06/02/25 History mg tablet,delayed release (Vitron-C) prednisone 20 mg tablet 40 mg PO UD PRN swelling 05/19/25 06/02/25 History epinephrine 0.3 mg/0.3 mL 0.3 mg (0.3 mL) IM Q10M PRN 05/21/25 06/02/25 Rx injection, auto-injector anaphylaxis #2 ea escitalopram oxalate 20 mg tablet 20 mg PO QPM #90 tabs 05/24/25 06/02/25 Rx (Lexapro) oxybutynin chloride 10 mg 10 mg PO DAILY #90 tabs 05/24/25 06/02/25 Rx tablet,extended release 24 hr hydroxyzine HCl 25 mg tablet 25 mg PO HS Allergy 06/02/25 06/02/25 History olmesartan 20 mg tablet (Benicar) 20 mg PO HS 06/02/25 06/02/25 History Past Med/Surg History Problem List Nocturia Antrochoanal polyp Chronic sinusitis, unspecified Chronic rhinitis Diarrhea Environmental and seasonal allergies Allergic rhinitis Choking Esophageal dysfunction Hypertension Hip pain Greater trochanteric pain syndrome Hypersomnia Tachycardia Iron deficiency anemia Restless leg Asthma Hypothyroid Liver cyst Chronic urticaria Obesity Panic disorder History of thyroid nodule Medical History Slow to wake up after anesthesia after sinus sx, 2018 [facility], "had to be admitted overnight until they could get her vitals stabilized" History of tachycardia "gets all the time," cardiac work up normal Allergic rhinitis currently seeing choir singer Dysphagia improving since start Xolair, scheduled to see gastro/ent after colonsocopy Hypertension controlled, stable per pt Sleep apnea severe-unable to get cpap to work, has not yet worn Mast cell disorder potential diagnosis - currently being worked up- had lab work ordered by Ivy Madrigal, choir singer Thyroid nodule biopsied a few weeks ago at [facility] and benign Hypothyroidism monitored, no meds Panic disorder Restless leg Hx of chest pain chronic, intermittent x 25 years ago-gradually improving-cardiac work-up (stress test 10 yrs ago was normal per patient)-states has had multiple ER/cardiology evaluations and EKGs/troponins were always normal Anemia History of postoperative nausea and vomiting Asthma daily inhaler and prn albuterol- using frequently in spring due to allergies- last albuterol inhaler several weeks ago Anxiety Acid reflux controlled, stable per pt Depression Surgical History Hx of colonoscopy (2024) History of esophagogastroduodenoscopy (EGD) (2024) Hx of biopsy (12/2024) thyroid- benign H/O sinus surgery (2018) S/P breast lumpectomy benign Hx of cholecystectomy History of ankle surgery x3- left- trimalleolar fracture Hx of tonsillectomy (1983) History of appendectomy Family History Grandmother (Maternal) Lung cancer Brain cancer Grandmother (Paternal) Ovarian cancer Grandfather (Paternal) Liver cancer Denies family history of Prostate cancer Myocardial infarction Breast cancer Colorectal cancer Stroke Social History Smoking Status: Never smoker Second Hand Exposure: No; Do You Dip or Chew Tobacco: No; Tobacco Cessation Education Requested by Patient: No Hx Alcohol Use: Yes Alcohol type: wine Alcohol Intake Frequency: 2-3 x/Week Hx Substance Use: No Preferred Language: Setswana Communication Ability: Effective Hearing Ability: Normal Swatch Checker Required: No Beliefs That Will Affect Care: None marital status: Single Current Living Situation: Alone 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 Other Information That Helps Us Care for You: No Feels Safe at Home: Yes Safety Concerns: Feels Safe At This Time Childhood Exposure to Second-Hand Smoke: No Diet: regular caffeine: Yes Dental Care, Regularly: No Physical Activity Frequency: Does not Exercise Seatbelt Use: always Sunscreen Use: No Assistive Devices: Contacts and Glasses Physical Exam Physical Exam: WNWD, NAD EOMI, normal sclera Nares patent, no external deformity External ears normal Normal voice Nonlabored respirations, no stridor AAO x3 Moving all extremities spontaneously Results & Data Results & Data Vital Signs (Past 12 Hours) Vital Signs Temp Pulse Resp BP Pulse Ox O2 Del Method 06/02/25 09:53 36.7 C 84 20 149/94 H 95 Room Air PG Care Time/CCT Total # of Minutes Spent Total Time Spent with Patient: Total time spent is greater than 50% in coordination of care (as documented) at patient's floor/unit and/or counseling patient: Coding Level of Care Code None Diagnoses Antrochoanal polyp J33.0 Chronic sinusitis, unspecified J32.9
[2025-06-02] MEDS: OXYMETAZOLINE 0.05% 30 ML BTL NAE SCH (10:34)
[2025-06-02] MEDS ORDERED: HYDROmorphone INJ 2 MG/ML SYR/VIAL IV PRN (10:39)
[2025-06-02] MEDS ORDERED: ATROPINE SULFATE 0.1 MG/ML 10ML SYR IV PRN (10:39)
[2025-06-02] MEDS ORDERED: PROMETHAZINE HCL 6.25 MG in SODIUM CHLORIDE 0.9% 50 ML IV PRN (10:39)
[2025-06-02] MEDS ORDERED: SUGAMMADEX SODIUM 200 MG/2 ML VIAL IV ONE (11:26)
[2025-06-02] MEDS ORDERED: SCOPOLAMINE 1 MG/72 HR TDSY PATCH TD ONE (11:34)
[2025-06-02] MEDS: SURGICEL ABSORB HEMOSTAT 2IN X 14IN TOP ONE (12:02)
[2025-06-02] MEDS: LIDOCAINE 1%/EPINEPHRINE 1:100,000 50 ML VIAL ONE (12:08)
[2025-06-02] MEDS: SODIUM CHLORIDE 0.9% PF INJ 10 ML VIAL ONE (12:09)
[2025-06-02] MEDS: TRIAMCINOLONE ACET 40 MG/ML VIAL ONE (12:09)
--- NOTE | 2025-06-02 12:10 | Operative Report ---
PG Post Operative Report Pre & Post Diagnosis Operation Date: 06/02/25 10:50 <No data on this case meets the specified criteria> 1. Chronic sinusitis 2. Bilateral inferior turbinate hypertrophy I identified the patient and participated in the time-out.: Yes Procedure Operation Date: 06/02/25 10:50 Actual Procedures p Image Guided Bilateral Endoscopic Sinsus Surgery with Bilateral Maxillary To guilherme Ethmoidectomies, Left Frontal Sinusotomies, Possible Septoplasty, Bilateral Inferior Turbinate Reduction - Carlos Soriano MD Surgeon Carlos Soriano MD Chemist Biological none Estimated Blood Loss 25 Findings See Below 1. Diffusely inflamed polypoid sinonasal mucosa 2. Bilateral inferior turbinate hypertrophy 3. Watery polyp right maxillary sinus at antrostomy 4. Exophytic lesion right inferolateral maxillary sinus Specimens none Anesthesia Type General Complications none Indications The patient has a history, imaging, and exam consistent with chronic sinusitis and bilateral inferior turbinate hypertrophy. The patient was seen in the office and has failed maximal medical therapy. It was recommended that the patient undergo image guided bilateral endoscopic sinus surgery, bilateral inferior turbinate reduction. The risks and benefits were discussed in detail and the patient elected to proceed with surgery. Informed consent was obtained. Description of Procedure The patient was identified in the preoperative holding area and brought back to the operating room. The patient was placed supine on the operating room table. After the successful induction of general orotracheal anesthesia by the Anesthesia team, the patient was prepped and draped in the usual fashion for image-guided bilateral endoscopic sinus surgery with septoplasty and bilateral inferior turbinate reduction. A surgical timeout was performed. The [employer] image guidance system was applied to the patient and calibrated. Accuracy was confirmed using known bony landmarks. The nasal cavities were then decongested with Afrin-soaked pledgets. A diagnostic nasal endoscopy was performed and the patient was noted to have diffusely inflamed sinonasal mucosa. The axillae of the bilateral middle turbinates were then injected with 1% lidocaine with 1:100,000 epinephrine. The middle meatus was decongested using Afrin-soaked pledgets bilaterally. The right nasal cavity was addressed first. There was a watery polyp in the right maxillary antrostomy which was biopsied and removed with powered instrumentation. The previous maxillary antrostomy was widened posteriorly, inferiorly, and back anteriorly in a tear-drop shape using thru- cutting instrumentation, including the natural ostium. The maxillary sinus was examined using a 30 degree endoscope and an exophytic lesion was noted in the inferolateral aspect of the maxillary sinus. This was biopsied. Polypoid mucosa and remaining air cells were then removed from the anterior and posterior ethmoid cavity, taking care to preserve the orbit and skull base. Attention was then turned to the left side. The previous maxillary antrostomy was widened posteriorly, inferiorly, and back anteriorly in a tear-drop shape using thru-cutting instrumentation, including the natural ostium. Polypoid mucosa and remaining ethmoid air cells were then removed from the anterior and posterior ethmoid cavity, taking care to preserve the orbit and skull base.The frontal sinus outflow tract was then identified using a frontal seeker and image guidance. The posterior aspect of the agger nasi cell was then removed using thru-cutting instrumentation. The frontal sinus outflow tract was noted to be patent. The heads of the bilateral inferior turbinates were then injected with 1% lidocaine with 1:100,000 epinephrine. Stab incisions were made in the heads of the bilateral inferior turbinates using a 15-blade scalpel. A [place]land elevator was used to dissect along the inferior turbinate bone bilaterally. Powered instrumentation using an inferior turbinate blade was used to reduce the submucosal stroma. The inferior turbinates were then outfractured using a [place] elevator. Adequate hemostasis was noted. The bilateral nasal cavities were irrigated with copious saline. A Propel stent was placed in the left frontal outflow tract. The middle meatus was packed with Surgicel and PosiSep hemostatic dressing. An orogastric tube was used to decompress the stomach and removed from the patient. The patient was then turn ed over to the Anesthesia team and extubated without difficulty. The patient was transferred to the PACU in good condition. I was present and performed the entire procedure myself. I attest to the content of the Intraoperative Record and any orders documented therein. Any exceptions are noted below.
[2025-06-02] MEDS: ONDANSETRON INJ 2 MG/ML 2 ML VIAL IV PRN ×2 (12:35→17:27)
--- NOTE | 2025-06-02 13:36 | Anesthesiology Progress Note ---
Date of Service June 02, 2025 Anesthesia Post Procedure Vital Signs Vital Signs: Temp Pulse Pulse Resp BP BP Pulse Ox 06/02/25 13:20 37.0 C 86 16 160/89 H 94 06/02/25 13:10 94 H 12 155/95 H 94 06/02/25 13:00 83 12 163/80 H 96 06/02/25 12:50 77 12 163/80 H 96 06/02/25 12:40 81 12 163/80 H 97 06/02/25 12:30 36.3 C L 100 H 16 162/93 H 96 06/02/25 09:53 36.7 C 84 20 149/94 H 95 O2 Del Method O2 Flow Rate 06/02/25 13:20 Room Air 06/02/25 13:10 Oxymask 2 06/02/25 13:00 Oxymask 4 06/02/25 12:50 Oxymask 4 06/02/25 12:40 Oxymask 6 06/02/25 12:30 Oxymask 6 06/02/25 09:53 Room Air Pain Intensity Bilateral Hip: Pain Intensity: 3 Posterior Neck: Pain Intensity: 2 Upper Face: Pain Intensity: 5 Nose: Pain Intensity: 4 Transfer of Care Handoff Completed per policy Notes Mental Status: alert / awake / arousable and participated in evaluation Patient Amnestic to Procedure: Yes Nausea / Vomiting: adequately controlled Pain: adequately controlled Airway Patency, RR, SpO2: stable & adequate BP & HR: stable & adequate Hydration State: stable & adequate Anesthetic Complications: no major complications apparent
--- NOTE | 2025-06-02 14:21 | Communication Note ---
Date of Service: May Pt was D/C'd from PACU on O2, anticipated to be weaned off O2 in SDSU prior to discharge. Attempts to D/C O2 resulted in SaO2 falling to mid-to-low 80's. Discussed w/ surgeon that pt is not fit for discharge under this circumstance. Pt reports similar experience post-op in the past. Anticipate admission for supplemental oxygen as needed.
--- NOTE | 2025-06-02 14:58 | XRay Report ---
XR chest 1V portable CLINICAL HISTORY: hypoxemia COMPARISON STUDY: 05/21/2025 FINDINGS: There is mild cardiomegaly without pulmonary vascular congestion. Inspiration is shallow. T here is mild stranding at the left lung base. No other consolidation or pleural effusion. No pneumoth orax. IMPRESSION: Atelectasis versus early pneumonia left lung base. ACT 112: Negative or not required by law. Electronically signed by: Hudson Matute M.D. 06/02/2025 2:56 PM
[2025-06-02] MEDS: ACETAMINOPHEN 325 MG TAB PO PRN (15:08)
--- NOTE | 2025-06-02 15:13 | History & Physical Report ---
Date of Service June 02, 2025 Assessment & Plan (1) Postoperative hypoxia: (2) Asthma: (3) S/P sinus surgery: Plan 50-year-old woman with asthma, obstructive sleep apnea and recently diagnosed mast cell activation syndrome who is admitted postoperatively from bilateral sinus surgery with persistent hypoxia Postop hypoxia. Personally reviewed CXR film shows left basilar atelectasis. suspicion for pneumonia or other infection is low. There is no evidence of asthma exacerbation. This is highly likely on the basis of atelectasis. She is already using the incentive spirometer at bedside and she feels like her breathing is improved - continue supplemental oxygen as needed, incentive spirometry, mobility - she has obstructive sleep apnea and I ordered CPAP per RT however unclear if she can tolerate it because of the nasal surgery I discussed her postoperative general care with Dr. Soriano, she recommended dressing changes as needed, Tylenol and oxycodone are ordered for pain control, Afrin 3 times daily, nasal saline, Berenice will follow-up with her as scheduled in the office Asthma - currently well-controlled since starting Xolair not in exacerbation, ordered albuterol as needed MCAS continue Xolair, hydroxyzine at at bedtime, fexofenadine. She did have some increase in MCAS type symptoms postoperatively but she frequently has similar symptoms that have improved and she is tolerating GERD continue PPI Morbid obesity BMI 41, contributes to atelectasis and hypoventilation History of Present Illness Chief Complaint: postop hypoxia Primary Care Provider: ANTONIO Nelson Berenice is a 50-year-old woman with asthma, obstructive sleep apnea and recently diagnosed mast cell activation syndrome who was admitted for postoperative hypoxia following a bilateral endoscopic sinus surgery. Berenice states that she has had trouble with postoperative hypoxia in the past as well. She feels pretty bad in general right now relating to nasal pain and congestion however her feeling of chest tightness has resolved and she feels like her breathing has improved. She has a CPAP at home but it is currently nonfunctional and she has not been using it. She notes that since she started Xolair for the MCAS she has not needed to use her asthma inhalers at all. She has a mild cough with a little bit of sputum postoperatively. She was doing well prior to surgery. Operation Date: 06/02/25 10:50 Actual Procedures p Image Guided Bilateral Endoscopic Sinsus Surgery with Bilateral Maxillary Total Ethmoidectomies, Left Frontal Sinusotomies, Possible Septoplasty, Bilateral Inferior Turbinate Reduction - Carlos Soriano MD Allergies Allergy/AdvReac Type Severity Reaction Status Date / Time NSAIDS (Non-Steroidal Allergy Severe Anaphylaxis Verified 05/24/25 16:33 Anti-Inflamma poison giacomo extract Allergy Severe Rash Verified 06/02/25 09:45 morphine AdvReac Intermediate ITCHY Verified 06/02/25 09:45 ENVIRONMENTAL Allergy Mild from [facility]AS Uncoded 06/02/25 09:45 possibly per pt metal AdvReac Intermediate "swelling Uncoded 06/02/25 09:45 and pain" Home Medications Medication Instructions Recorded Confirmed Type fexofenadine 180 mg tablet 180 mg PO BID 07/28/23 06/02/25 History (Laurel Allergy) CPAP Machine #1 ea 06/23/24 05/24/25 Rx acetaminophen 325 mg tablet 650 mg PO HS PRN Pain 01/27/25 06/02/25 History (Tylenol) omalizumab 300 mg/2 mL 300 mg (2 mL) subcut .COMPLEX #2 mL 02/12/25 06/02/25 Rx subcutaneous syringe (Xolair) albuterol sulfate 90 mcg/actuation 2 inh inhalation TID PRN shortness 03/29/25 06/02/25 Rx aerosol inhaler of breath or wheezing #8.5 grams dicyclomine 10 mg capsule 10 mg PO TID PRN Abdominal Pain 05/19/25 06/02/25 History esomeprazole magnesium 40 mg 40 mg PO QPM 05/19/25 06/02/25 History capsule,delayed release (Nexium) fluticasone propionate 230 2 puff inhalation BID PRN 05/19/25 06/02/25 History mcg-salmeterol 21 mcg/actuation Shortness Of Breath HFA inhaler (Advair HFA) iron,carbonyl 65 mg-vitamin C 125 1 tab PO DAILY 05/19/25 06/02/25 History mg tablet,delayed release (Vitron-C) prednisone 20 mg tablet 40 mg PO UD PRN swelling 05/19/25 06/02/25 History epinephrine 0.3 mg/0.3 mL 0.3 mg (0.3 mL) IM Q10M PRN 05/21/25 06/02/25 Rx injection, auto-injector anaphylaxis #2 ea escitalopram oxalate 20 mg tablet 20 mg PO QPM #90 tabs 05/24/25 06/02/25 Rx (Lexapro) oxybutynin chloride 10 mg 10 mg PO DAILY #90 tabs 05/24/25 06/02/25 Rx tablet,extended release 24 hr hydroxyzine HCl 25 mg tablet 25 mg PO HS Allergy 06/02/25 06/02/25 History olmesartan 20 mg tablet (Benicar) 20 mg PO HS 06/02/25 06/02/25 History oxycodone 5 mg tablet 5 mg PO Q4H PRN pain #14 tabs 06/02/25 Rx Past Med/Surg History Problem List (Updated 06/02/25 @ 19:36 by Laura Childers MD) Postoperative hypoxia S/P sinus surgery Nocturia Antrochoanal polyp Chronic sinusitis, unspecified Chronic rhinitis Diarrhea Environmental and seasonal allergies Allergic rhinitis Choking Esophageal dysfunction Hypertension Hip pain Greater trochanteric pain syndrome Hypersomnia Tachycardia Iron deficiency anemia Restless leg Asthma Hypothyroid Liver cyst Chronic urticaria Obesity Panic disorder History of thyroid nodule Medical History Slow to wake up after anesthesia after sinus sx, 2019 [facility], "had to be admitted overnight until they could get her vitals stabilized" History of tachycardia "gets all the time," cardiac work up normal Allergic rhinitis currently seeing pension adviser Dysphagia improving since start Xolair, scheduled to see gastro/ent after colonsocopy Hypertension controlled, stable per pt Sleep apnea severe-unable to get cpap to work, has not yet worn Mast cell disorder potential diagnosis - currently being worked up- had lab work ordered by Ivy Madrigal, pension adviser Thyroid nodule biopsied a few weeks ago at [facility] and benign Hypothyroidism monitored, no meds Panic disorder Restless leg Hx of chest pain chronic, intermittent x 25 years ago-gradually improving-cardiac work-up (stress test 10 yrs ago was normal per patient)-states has had multiple ER/cardiology evaluations and EKGs/troponins were always normal Anemia History of postoperative nausea and vomiting Asthma daily inhaler and prn albuterol- using frequently in spring due to allergies- last albuterol inhaler several weeks ago Anxiety Acid reflux controlled, stable per pt Depression Surgical History Hx of colonoscopy (2024) History of esophagogastroduodenoscopy (EGD) (2024) Hx of biopsy (12/2024) thyroid- benign H/O sinus surgery (2018) S/P breast lumpectomy benign Hx of cholecystectomy History of ankle surgery x3- left- trimalleolar fracture Hx of tonsillectomy (1983) History of appendectomy Family History Grandmother (Maternal) Lung cancer Brain cancer Grandmother (Paternal) Ovarian cancer Grandfather (Paternal) Liver cancer Denies family history of Prostate cancer Myocardial infarction Breast cancer Colorectal cancer Stroke Social History Smoking Status: Never smoker Second Hand Exposure: No; Do You Dip or Chew Tobacco: No; Tobacco Cessation Education Requested by Patient: No Hx Alcohol Use: Yes Alcohol type: wine Alcohol Intake Frequency: 2-3 x/Week Hx Substance Use: No Preferred Language: Bahamian Communication Ability: Effective Hearing Ability: Normal Freight Service Inspector Required: No Beliefs That Will Affect Care: None marital status: Single Current Living Situation: Alone 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 wearing oxygen facemask trying to doze off but still awake HEENT: pupils equal, sclerae anicteric, moist MM. there is a dressing on her nose no strikethrough. no stridorous sounds RESP: normal WOB, CTAB CV: reg no mrg ABD: soft/nt/nd +BT : no barker SKIN: warm and dry, no generalized rashes NEURO: AOx person, place, and situation. Face symmetric, speech normal, moves 4 ext spontaneously and equally Results & Data Results & Data Vital Signs (Past 12 Hours) Vital Signs Temp Pulse Pulse Resp BP BP Pulse Ox 06/02/25 14:30 36.9 C 85 18 140/74 94 06/02/25 14:00 36.9 C 84 18 140/89 96 06/02/25 13:30 36.9 C 84 19 147/91 H 94 06/02/25 13:20 37.0 C 86 16 160/89 H 94 06/02/25 13:10 94 H 12 155/95 H 94 06/02/25 13:00 83 12 163/80 H 96 06/02/25 12:50 77 12 163/80 H 96 06/02/25 12:40 81 12 163/80 H 97 06/02/25 12:30 36.3 C L 100 H 16 162/93 H 96 06/02/25 09:53 36.7 C 84 20 149/94 H 95 O2 Del Method O2 Flow Rate 06/02/25 14:30 Room Air 06/02/25 14:00 Oxymask 4 06/02/25 13:30 Oxymask 4 06/02/25 13:20 Room Air 06/02/25 13:10 Oxymask 2 06/02/25 13:00 Oxymask 4 06/02/25 12:50 Oxymask 4 06/02/25 12:40 Oxymask 6 06/02/25 12:30 Oxymask 6 06/02/25 09:53 Room Air Laboratory Results she had a chest x-ray I personally reviewed the x-ray film and agree there is some left base atelectasis there also may be some right base atelectasis but less prominent PG Care Time/CCT Total # of Minutes Spent Total Time Spent with Patient: Total time spent is greater than 50% in coordination of care (as documented) at patient's floor/unit and/or counseling patient: Coding Level of Care Code 96463 INT INP/OBS CARE 2/55MIN Diagnoses Postoperative hypoxia R09.02; Z98.890 Asthma J45.909 S/P sinus surgery Z98.890
[2025-06-02] MEDS ORDERED: MELATONIN 3 MG TAB PO PRN (16:47)
[2025-06-02] MEDS ORDERED: SODIUM CHLORIDE 0.65% NA SOLN 45 ML (OCEAN) PRN (16:47)
[2025-06-02] MEDS ORDERED: DICYCLOMINE HCL 10 MG CAP PO PRN (16:47)
[2025-06-02] MEDS ORDERED: ALUMINUM/MAGNESIUM SUSP 30 ML UDC PO PRN (16:47)
[2025-06-02] MEDS ORDERED: MAGNESIUM HYDROXIDE SUSP 30 ML UDC PO PRN (16:47)
[2025-06-02] MEDS ORDERED: FLUTICASONE/VILANTEROL 200/25MCG 14 PUFFS/INHALER INH PRN (16:53)
[2025-06-02 19:44] VITALS: RESP 18
[2025-06-02] MEDS: ESCITALOPRAM OXALATE 20 MG TAB PO SCH (20:13)
[2025-06-02] MEDS: FEXOFENADINE HCL 180 MG TAB PO SCH (20:14)
[2025-06-02] MEDS: LOSARTAN POTASSIUM 50 MG TAB PO SCH (20:15)
[2025-06-02] MEDS: OXYMETAZOLINE 0.05% 30 ML BTL SCH (20:16)
[2025-06-02] MEDS: ALBUTEROL HFA 8 GM INHALER INH SCH (20:17)
[2025-06-02] MEDS: SODIUM CHLORIDE 0.65% NA SOLN 45 ML (OCEAN) SCH (20:22)
[2025-06-03] MEDS: POLYETHYLENE (MIRALAX) 17 GM PACK PO PRN (00:11)
[2025-06-03 07:16] VITALS: BP 131/68; TEMP 98.1
[2025-06-03 07:47] VITALS: PULSE 55
[2025-06-03 11:47] VITALS: O2SAT 94
--- NOTE | 2025-06-03 12:38 | Discharge Summary ---
Discharge Summary Date of Service June 03, 2025 Principal Dx & Hospital Course #1 = Principal Diagnosis (1) Postoperative hypoxia: (2) Asthma: (3) S/P sinus surgery: Plan 50-year-old woman with asthma, obstructive sleep apnea and recently diagnosed mast cell activation syndrome who is admitted postoperatively from bilateral sinus surgery with persistent hypoxia Postop hypoxia due to atelectasis - resolved by 24h postop with increased mobility, IS, and able to discharge home Follow up with Dr. Soriano postop as scheduled JIGNA contributing -advised she get a new CPAP machine Asthma - currently well-controlled since starting Xolair not in exacerbation, cont ususal inhalers MCAS continue Xolair, hydroxyzine at at bedtime, fexofenadine. She did have some increase in MCAS type symptoms postoperatively but she frequently has similar symptoms that have improved and she is tolerating GERD continue PPI Morbid obesity BMI 41, contributes to atelectasis and hypoventilation Admission HPI Per Admitting Provider Berenice is a 50-year-old woman with asthma, obstructive sleep apnea and recently diagnosed mast cell activation syndrome who was admitted for postoperative hypoxia following a bilateral endoscopic sinus surgery. Berenice states that she has had trouble with postoperative hypoxia in the past as well. She feels pretty bad in general right now relating to nasal pain and congestion however her feeling of chest tightness has resolved and she feels like her breathing has improved. She has a CPAP at home but it is currently nonfunctional and she has not been using it. She notes that since she started Xolair for the MCAS she has not needed to use her asthma inhalers at all. She has a mild cough with a little bit of sputum postoperatively. She was doing well prior to surgery. Operation Date: 06/02/25 10:50 Actual Procedures p Image Guided Bilateral Endoscopic Sinsus Surgery with Bilateral Maxillary Total Ethmoidectomies, Left Frontal Sinusotomies, Possible Septoplasty, Bilateral Inferior Turbinate Reduction - Carlos Soriano MD Discharge Exam Last 24h vitals reviewed GEN: no acute distress, sitting in bed. alert HEENT: nose dresing is off, no epistaxis RESP: normal WOB, CTAB CV: reg no mrg ABD: soft/nt/nd +BT : no barker SKIN: warm and dry, no generalized rashes NEURO: AOx person, place, and situation. Face symmetric, speech normal, moves 4 ext spontaneously and equally Discharge Plan Discharge Items Patient Disposition: Home - Self-Care Reason For Visit: Chronic Rhinitis, Allergic Rhinitis Discharge Diagnosis: CRS, ITH Activity: Resume your previous activity Non-emergency contact: Primary Care Provider and Surgeon Call non-emergency contact if: you have any medication questions, your symptoms worsen and you have a fever Follow-up/Referrals: Uma Alves CRNP [Primary Care Provider] - 06/07/25 1:30 pm Carlos Soriano MD [Physician] - Diet: Regular Addtl Attending Provider Instructions: 1. Over the counter Afrin: 2 sprays into each nostril 3 times daily for 3 days only & as needed for nosebleed followed by 10 minutes of direct pressure. 2. Nasal saline irrigations 4 times daily starting the evening of surgery. 3. Tylenol as needed for pain control. Prescription for oxycodone was sent to your pharmacy as needed for breakthrough pain. 4. Do not blow your nose for 2 weeks. 5. Light activity for 2 weeks. 6. No aspirin or NSAIDs for 2 weeks. 7. No driving on narcotic pain medication 8. Follow up in 7-10 days Pending Studies at Discharge: No Stand-Alone Forms: Anesthesia/Sedation, Adult, [facility] Medications and DC Order Prescriptions: New oxycodone 5 mg tablet 5 mg PO Q4H PRN (Reason: pain) Qty: 14 0RF Continued albuterol sulfate 90 mcg/actuation HFA aerosol inhaler 2 inh inhalation TID PRN (Reason: shortness of breath or wheezing) Qty: 8.5 5RF (DME) CPAP Machine Misc See Rx Instructions .Route Qty: 1 0RF Rx Instructions: ResMed machine set to Auto CPAP 5-20 cm water pressure with heated humidification, tubing, and supplies. ABELARDO: 99+ years. Xolair 300 mg/2 mL syringe 300 mg subcut .COMPLEX Qty: 2 11RF Patient Comments: next injection 05/21/25 Rx Instructions: INJECT 300 mg subcutaneously EVERY 4 WEEKS APPROVED GOOD 02/12/25-02/12/26 [id number] epinephrine 0.3 mg/0.3 mL auto-injector 0.3 mg IM Q10M PRN (Reason: anaphylaxis) Qty: 2 1RF Rx Instructions: for 2 doses oxybutynin chloride 10 mg tablet extended release 24hr 10 mg PO DAILY Qty: 90 3RF Rx Instructions: has not started yet- will begin post op escitalopram oxalate [Lexapro] 20 mg tablet 20 mg PO QPM Qty: 90 3RF fexofenadine [Laurel Allergy] 180 mg Tablet 180 mg PO BID Vitron-C 65 mg iron- 125 mg Tablet,Delayed Release (Dr/Ec) 1 tab PO DAILY prednisone 20 mg tablet 40 mg PO UD PRN (Reason: swelling) Rx Instructions: TAKE 2 TABLETS BY MOUTH AT THE ONSET OF SWELLING.; esomeprazole magnesium [Nexium] 40 mg capsule,delayed release(DR/EC) 40 mg PO QPM dicyclomine 10 mg capsule 10 mg PO TID PRN (Reason: Abdominal Pain) fluticasone propion-salmeterol [Advair HFA] 230-21 mcg/actuation HFA aerosol inhaler 2 puff inhalation BID PRN (Reason: Shortness Of Breath) Rx Instructions: WITH A RINSE OF MOUTH AFTERWARDS. hydroxyzine HCl 25 mg tablet 25 mg PO HS olmesartan [Benicar] 20 mg tablet 20 mg PO HS acetaminophen [Tylenol] 325 mg Tablet 650 mg PO HS PRN (Reason: Pain) Discharge Orders: Discharge Order (Routine); Ordered 06/03/25 Ordered By: Laura Montero/Other Patient Handouts: DVT Post Op Prevention Admission Data Admit Date/Time: 06/02/25 15:19 Attending Provider: Laura Childers Admit Provider: Laura Childers Primary Care Provider: Uma Alves Other Interventions: Discharge Summary Assessment (RN) Last Done: 06/03/25 13:08 Hospital Stay Data Procedures Performed Operation Date: 06/02/25 10:50 Actual Procedures p Image Guided Bilateral Endoscopic Sinsus Surgery with Bilateral Maxillary Total Ethmoidectomies, Left Frontal Sinusotomies, Bilateral Inferior Turbinate Reduction(Bilateral) - Carlos Soriano MD Pending Results Patient Have Any Pending Studies at Discharge: No Discharge Instructions Given to Patient (Per Discharging Provider) 1. Over the counter Afrin: 2 sprays into each nostril 3 times daily for 3 days only & as needed for nosebleed followed by 10 minutes of direct pressure. 2. Nasal saline irrigations 4 times daily starting the evening of surgery. 3. Tylenol as needed for pain control. Prescription for oxycodone was sent to your pharmacy as needed for breakthrough pain. 4. Do not blow your nose for 2 weeks. 5. Light activity for 2 weeks. 6. No aspirin or NSAIDs for 2 weeks. 7. No driving on narcotic pain medication 8. Follow up in 7-10 days Total Time Total Time Spent Total Time Spent (In Minutes): <30 Coding Level of Care Code 32682 IN/OBS DISCH 30 MIN/LESS Diagnoses Postoperative hypoxia R09.02; Z98.890 Asthma J45.909 S/P sinus surgery Z98.890
--- NOTE | 2025-06-03 21:10 | Ears,Nose,Throat Progress Note ---
Date of Service June 03, 2025 Assessment & Plan (1) Postoperative hypoxia: (2) S/P sinus surgery: Plan 50yF POD1 s/p FESS, ITR admitted with postoperative hypoxia. SaO2 >90% on 3L. -Wean O2 per medicine team -OK for d/c from ENT standpoint once off O2 -Nasal saline irrigations QID -Afrin TID x3 days, then prn epistaxis -No noseblowing or lifting > 10 pounds -F/u 7-10 days as scheduled Admission and Anticipated Discharge Date Admission Date: June 02, 2025 Subjective JUWAN o/n. Pain controlled, minimal bleeding. O2 > 90% on 3L Physical Exam Physical Exam: NAD, nonlabored respirations on 3L O2 face mask No epistaxis Results & Data Vital Signs (Past 12 Hours) Vital Signs Resp Pulse Ox O2 Del Method 06/03/25 11:47 94 Room Air 06/03/25 11:21 18 92 Room Air 06/03/25 10:58 89 L Room Air 06/03/25 09:41 90 Room Air PG Care Time/CCT Total # of Minutes Spent Total Time Spent with Patient: Total time spent is greater than 50% in coordination of care (as documented) at patient's floor/unit and/or counseling patient: Coding Level of Care Code None Diagnoses Postoperative hypoxia R09.02; Z98.890 S/P sinus surgery Z98.890
== END 2025-06-03 14:26 | disposition home or self-care (01) ==
LOC: 3N 09:17 → ASU 09:17
DX: D14.0 Benign neoplasm of middle ear, nasal cavity and accessory sinuses; Z88.5 Allergy status to narcotic agent; J98.11 Atelectasis; K21.9 Gastro-esophageal reflux disease without esophagitis; J34.3 Hypertrophy of nasal turbinates; J45.909 Unspecified asthma, uncomplicated; E66.01 Morbid (severe) obesity due to excess calories; G47.33 Obstructive sleep apnea (adult) (pediatric); Z79.899 Other long term (current) drug therapy; Z68.41 Body mass index [BMI] 40.0-44.9, adult; R09.02 Hypoxemia; Z88.6 Allergy status to analgesic agent; D89.40 Mast cell activation, unspecified